=== PATIENT | female | born 1990 | race Caucasian/White ===

== ENCOUNTER → 2016-07-30 | Emergency (ER) | payer OTHER ==
[~2016-07-30] VITALS: Ht 170.2 cm; Wt 59.0 kg
[~2016-07-30] MED LIST: NKM
[2016-07-30 03:40] VITALS: BP 139/80
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
[2016-07-30 04:27] VITALS: BP 139/80
--- NOTE | 2016-07-30 11:12 | Diagnostic Imaging Report ---
Indication: Pain Comparison: None Findings: 3 views of the right ankle obtained. Compression plate over the medial malleoli region and tibial plafond noted. There is no acute fracture identified or significant malalignment. There is generalized soft tissue swelling. There is a long intramedullary screw within the lateral malleolus reducing a fracture. Impression: Evidence of previous bimalleolar injury. Status post ORIF. No acute fracture seen currently. Generalized soft tissue swelling.
== END ==
LOC: EMR 03:52
DX: S93.401A Sprain of unspecified ligament of right ankle, initial encounter (principal); X50.1XXA Overexertion from prolonged static or awkward postures, initial encounter; Y99.9 Unspecified external cause status; Z72.89 Other problems related to lifestyle
CPT/HCPCS: 99282